=== PATIENT | female | born 1940 | race Caucasian/White ===

== ENCOUNTER 2017-11-26 17:14 | Emergency (ER) | payer MEDICARE, SELFPAY ==
[2017-11-26 17:21] VITALS: BP 104/54; PULSE 54; TEMP 35.9; O2SAT 100; BMI 18.0
[2017-11-26 18:00] VITALS: BP 145/76; PULSE 63; O2SAT 100
--- NOTE | 2017-11-26 18:09 | ED.FALL ---
HPI - Fall General Chief Complaint: Fall Stated Complaint: FALL RIGHT ARM INJURY Time Seen by Provider: 11/26/17 18:09 Source: patient Mode of arrival: EMS Limitations: no limitations History of Present Illness HPI Narrative: Patient is a 77-year-old female on Xarelto for atrial fibrillation here for evaluation of a mechanical fall. She states she was walking [place] and she tripped over some daniel. She states that she landed on her right shoulder. She states she did hit the right side of her head. No loss of consciousness. No neck pain. Has had pain in her right shoulder since the event. No other joint or muscle pain. Related Data Home Medications Medication Instructions Recorded Confirmed Fish Oil 1 cap PO DAILY 11/26/17 11/26/17 Vitamin B 1 tab PO DAILY 11/26/17 11/26/17 Vitamin D3 1 cap PO DAILY 11/26/17 11/26/17 levothyroxine 1 tab PO DAILY 11/26/17 11/26/17 metoprolol succinate 1 tab PO QPM 11/26/17 11/26/17 [id number] 1 tab PO DAILY 11/26/17 11/26/17 [Multivitamin 50 Plus] rivaroxaban [Xarelto] 1 tab PO DAILY 11/26/17 11/26/17 sertraline 1 tab PO QPM 11/26/17 11/26/17 Previous Rx's Medication Instructions Recorded hydrocodone-acetaminophen [[place]] 1 tab PO Q4-6H PRN #20 tab 11/26/17 ondansetron [Zofran ODT] 4 mg PO BID-TID PRN #14 tab 11/26/17 Allergies Allergy/AdvReac Type Severity Reaction Status Date / Time cortisone AdvReac Verified 11/26/17 17:26 Review of Systems Constitutional Denies fever(s), Denies frequent falls and Denies headache(s) Eyes Denies change in vision ENT Ears, Nose, Mouth, and Throat: Denies vertigo, Denies dizziness, Denies headache(s) and Denies neck pain Cardiovascular Denies chest pain, Denies syncope, Denies palpitations and Denies dyspnea Respiratory Denies cough and Denies dyspnea Gastrointestinal Gastrointestinal: Denies abdominal pain, Denies nausea and Denies vomiting Musculoskeletal Denies myalgias, Reports arthralgias (Right shoulder), Denies neck pain and Denies tingling Integumentary/Breasts Denies lesions and Denies rash Neurologic Denies confusion, Denies vertigo, Denies dizziness, Denies syncope, Denies frequent falls, Denies headache(s), Denies focal weakness, Denies tingling and Denies paresthesias Psychiatric Denies confusion Endocrine Denies palpitations Hematologic/Lymphatic Reports easy bleeding (On Xarelto) Exam Initial Vital Signs Initial Vital Signs: Vital Signs Temperature 96.7 F L 11/26/17 17:21 Pulse Rate 54 L 11/26/17 17:21 Blood Pressure 104/54 L 11/26/17 17:21 Pulse Oximetry 100 11/26/17 17:21 Const General: cooperative, healthy appearing, well developed, well groomed and No acute distress Orientation: alert, awake and oriented x3 HENKS Head: normal to inspection, normocephalic, atraumatic, No abrasion, No contusion and No hematoma Nose: external nose normal Face and sinus: normal facial exam Eyes Pupils: PERRL EOM: EOM intact bilaterally Resp Effort & Inspection: normal respiratory effort Auscultation: clear to auscultation bilaterally Cardio Rate: regular rate Heart Sounds: no murmurs Pulses: radial pulses present GI Inspection: non-distended Palpation: soft, No firm and No tender Back/Spine/Pelvis Cervical Spine: No cervical muscular tenderness, No cervical spinal tenderness, No step off deformity and cervical ROM abnormal Skin Lesions: no lesions Rashes: no rashes Neuro General: alert, awake and oriented x3 Cognition: normal cognition Speech: speech normal Sensory Exam: no sensory deficits noted Extrem Right upper extremity: shoulder/upper arm Details: tenderness, abnormal ROM and deformity Location: of the proximal humerus; no swelling, no abrasions and no lacerations Psych Appearance: grossly normal and well [place] [facility] Medical History Atrial fibrillation (Acute) Hypothyroid (Acute) Surgical History No pertinent past surgical history (Acute) Social History Smoking Status: Never smoker Procedures Orthopedic Splinting/Casting Injury #1: Side: right Upper Extremity Injury Location: shoulder Other Orthopedic Equipment: other (Coaptation splint right shoulder) Course Orders Ordered: ED Orders 11/26/17 18:17 XR shoulder RT 1V Stat XR shoulder RT min 2V Stat 11/26/17 18:21 Partial Thromboplastin Time Stat Prothrombin Time INR Stat 11/26/17 18:57 CT UE RT wo con Stat Discontinued Medications Hydrocodone Bitart/Acetaminophen (Vicodin Prepack) 1 bottle MISC SEEINSTR ONE Stop: 11/26/17 20:38 Last Admin: 11/26/17 21:16 Dose: 1 bottle Morphine Sulfate (Morphine) 4 mg SUBCUT NOW ONE Stop: 11/26/17 18:18 Last Admin: 11/26/17 18:27 Dose: 4 mg Morphine Sulfate (Morphine) 4 mg SUBCUT NOW ONE Stop: 11/26/17 19:59 Last Admin: 11/26/17 20:06 Dose: 4 mg Ondansetron HCl (Zofran Odt) 4 mg PO NOW ONE Stop: 11/26/17 20:29 Last Admin: 11/26/17 20:37 Dose: 4 mg Ondansetron HCl (Zofran Odt Prepack) 1 bottle MISC SEEINSTR ONE Stop: 11/26/17 20:38 Last Admin: 11/26/17 21:16 Dose: 1 bottle Vital Signs - 8 hr 11/26/17 19:00 11/26/17 20:00 11/26/17 21:00 Pulse Rate 99 H 80 104 H Blood Pressure Blood Pressure [Left Arm] 153/79 H 152/82 H 159/81 H Pulse Oximetry 98 95 11/26/17 21:27 Pulse Rate 78 Blood Pressure 159/81 H Blood Pressure [Left Arm] Pulse Oximetry MDM - Fall Lab Data Lab Results 11/26/17 Range/Units 18:21 PT 12.0 (10.1-12.7) SECONDS INR 1.1 (0.9-1.3) APTT 25 L (26.4-36.2) SECONDS Imaging Data Shoulder x-ray: Radiologist's impression: [address] [address] XRay Report Signed Patient: Trish Barnes [facility]#: [id number] : 1Acct:[id number] Age/Sex: 77 / FDate of Service: 11/26/17 Loc: ED Accession Number: [id number] Procedure: XR shoulder RT min 2V Ordering Provider: Kendell Bernard D.O. PROCEDURE: XR SHOULDER RT MIN 2V INDICATIONS: Fall with pain limited range of motion TECHNIQUE: 2 views of the shoulder were acquired. COMPARISON: None. FINDINGS: Bones: There is an acute comminuted fracture involving right humeral head and neck with a laterally displaced greater trochanteric fragment. There is superior-medial migration of humeral shaft in relation to humeral head. Moderate to severe shoulder joint osteoarthritis is seen. No dislocation. Soft tissues: No suspicious soft tissue calcifications. IMPRESSION: Acute displaced comminuted proximal head/neck fracture as above. Dictated by: Richard Spence M.D. on 11/26/2017 at 18:44 Approved by: Richard Spence M.D. on 11/26/2017 at 18:49 Humerus x-ray: Radiologist's impression: PROCEDURE: XR SHOULDER RT 1V INDICATIONS: Fall with pain limited range of motion TECHNIQUE: Single view of the shoulder were acquired. COMPARISON: [facility], XR SHOULDER RT MIN 2V, 11/26/2017, 18:00. FINDINGS: Bones: Again noted is comminuted fracture involving right humeral head and neck with medial and superior migration of humeral shaft in relation to humeral head. No dislocation. Laterally displaced greater tuberosity fragment is seen. Soft tissues: No suspicious soft tissue calcifications. IMPRESSION: Acute comminuted and displaced humeral head and neck fracture as above. Dictated by: Richard Spence M.D. on 11/26/2017 at 18:50 Approved by: Richard Spence M.D. on 11/26/2017 at 18:[address]: Radiologist's impression: [place] [address] CT Scan Report Signed Patient: Trish Barnes [facility]#: [id number] : 1940cct:[id number] Age/Sex: 77 / FDate of Service: 11/26/17 Loc: ED Accession Number: [id number] Procedure: CT UE RT wo con Ordering Provider: Kendell Bernard D.O. PROCEDURE: CT UE RT WO CON INDICATIONS: Right proximal humerus fracture TECHNIQUE: Noncontrast 1-1.5 mm thick sections acquired from the acromioclavicular joint to the inferior scapula, with coronal and sagittal reformatting. COMPARISON: [facility], CR, XR SHOULDER RT MIN 2V, 11/26/2017, 18:00. FINDINGS: Image quality: Excellent. Bones: Again noted is acute comminuted fracture involving right humeral head and neck with superior and medial migration of proximal humeral shaft in relation to the humeral head and approximately 1 cm overlapping at fracture site. Fracture lines are seen extending to involve both greater and lesser tuberosities with a medially displaced lesser tuberosity fragment and superior laterally displaced greater tuberosity fragment. Moderate acromioclavicular joint and glenohumeral joint osteoarthritis is seen. There is no dislocation. The visualized right upper ribs are clear. Soft tissues: There is suggestion of soft tissue swelling around the right proximal humeral shaft and small to moderate amount of joint effusion. Right apical scarring/atelectasis is seen. Emphysematous changes are noted in visualized right lung field. No pneumothorax. IMPRESSION: 1. Acute comminuted humeral head/neck fracture with superior and medial migration of humeral shaft in relation to humeral head. Displaced greater and lesser tuberosity fragments. No dislocation. Shoulder joint osteoarthritis. 2. Soft tissue swelling around proximal humeral shaft fracture site with suggestion of joint effusion. Right apical scarring/atelectasis. No gross pneumothorax. Dictated by: Richard Spence M.D. on 11/26/2017 at 19:44 Approved by: Richard Spence M.D. on 11/26/2017 at 19:49 MDM Narrative Medical decision making narrative: Secondary to patient's history and physical exam and where she states that she hit her shoulder and then the right side of her head and no loss consciousness and no neurologic exam I feel that I can hold on a head CT for now. Does have a right proximal humerus fracture. CT scan was ordered per recommendation from Orthopedics. I discussed the case with Dr. Jones with Orthopedics. Patient was neurovascularly intact in the right upper extremity. Patient was placed in a splint. Was sent home with pain medication. She was given follow-up instructions with the Orthopedic group. She was also given return precautions. Patient expressed understanding. Her was at the bedside for all these discussions. They both expressed agreement plan Discharge Plan Departure Patient Disposition: Home Clinical Impression: Fracture, humerus, neck Discharge Date/Time: 11/26/17 21:28 Interventions: ED Discharge Assessment Last Done: 11/26/17 21:27 Instructions: How to Use a Sling, DI for Shoulder Fracture, How to Take Care of Your Splint Activity Restrictions/Additional Instructions: On Wednesday morning call the [facility] Orthopedic group at [phone]. They had recommended that you stop taking your Xarelto. Take the medications as directed. Return to the emergency department for any new or worsening symptoms Prescriptions: New hydrocodone-acetaminophen [[place]] 5-325 mg tablet 1 tab PO Q4-6H PRN (Reason: pain) Qty: 20 RF: 0 ondansetron [Zofran ODT] 4 mg tablet,disintegrating 4 mg PO BID-TID PRN (Reason: nausea and vomiting) Qty: 14 RF: 0 No Action metoprolol succinate 50 mg tablet extended release 24 hr 1 tab PO QPM RF: 0 levothyroxine 50 mcg tablet 1 tab PO DAILY RF: 0 sertraline 50 mg tablet 1 tab PO QPM RF: 0 rivaroxaban [Xarelto] 20 mg tablet 1 tab PO DAILY RF: 0 [id number] [Multivitamin 50 Plus] Tablet 1 tab PO DAILY RF: 0 Fish Oil 1 cap PO DAILY RF: 0 Vitamin B 1 tab PO DAILY RF: 0 Vitamin D3 1 cap PO DAILY RF: 0
--- NOTE | 2017-11-26 18:17 | DI.RAD.S_ITS ---
PROCEDURE: XR SHOULDER RT MIN 2V INDICATIONS: Fall with pain limited range of motion TECHNIQUE: 2 views of the shoulder were acquired. COMPARISON: None. FINDINGS: Bones: There is an acute comminuted fracture involving right humeral head and neck with a laterally displaced greater trochanteric fragment. There is superior-medial migration of humeral shaft in relation to humeral head. Moderate to severe shoulder joint osteoarthritis is seen. No dislocation. Soft tissues: No suspicious soft tissue calcifications. IMPRESSION: Acute displaced comminuted proximal head/neck fracture as above. Dictated by: Richard Spence M.D. on 11/26/2017 at 18:44 Approved by: Richard Spence M.D. on 11/26/2017 at 18:49
--- NOTE | 2017-11-26 18:17 | DI.RAD.S_ITS ---
PROCEDURE: XR SHOULDER RT 1V INDICATIONS: Fall with pain limited range of motion TECHNIQUE: Single view of the shoulder were acquired. COMPARISON: [facility], CR, XR SHOULDER RT MIN 2V, 11/26/2017, 18:00. FINDINGS: Bones: Again noted is comminuted fracture involving right humeral head and neck with medial and superior migration of humeral shaft in relation to humeral head. No dislocation. Laterally displaced greater tuberosity fragment is seen. Soft tissues: No suspicious soft tissue calcifications. IMPRESSION: Acute comminuted and displaced humeral head and neck fracture as above. Dictated by: Richard Spence M.D. on 11/26/2017 at 18:50 Approved by: Richard Spence M.D. on 11/26/2017 at 18:56
[2017-11-26] MEDS: MORPHINE 4 MG/ML INJ SUBCUT ×2 (18:27→20:06)
[2017-11-26 18:35] LABS: INR 1.1 (0.9-1.3)
[2017-11-26 18:38] LABS: PTT Partial Thromboplastin Tim 25 SECONDS (26.4-36.2)
--- NOTE | 2017-11-26 18:57 | DI.CT.S_ITS ---
PROCEDURE: CT UE RT WO CON INDICATIONS: Right proximal humerus fracture TECHNIQUE: Noncontrast 1-1.5 mm thick sections acquired from the acromioclavicular joint to the inferior scapula, with coronal and sagittal reformatting. COMPARISON: [facility], CR, XR SHOULDER RT MIN 2V, 11/26/2017, 18:00. FINDINGS: Image quality: Excellent. Bones: Again noted is acute comminuted fracture involving right humeral head and neck with superior and medial migration of proximal humeral shaft in relation to the humeral head and approximately 1 cm overlapping at fracture site. Fracture lines are seen extending to involve both greater and lesser tuberosities with a medially displaced lesser tuberosity fragment and superior laterally displaced greater tuberosity fragment. Moderate acromioclavicular joint and glenohumeral joint osteoarthritis is seen. There is no dislocation. The visualized right upper ribs are clear. Soft tissues: There is suggestion of soft tissue swelling around the right proximal humeral shaft and small to moderate amount of joint effusion. Right apical scarring/atelectasis is seen. Emphysematous changes are noted in visualized right lung field. No pneumothorax. IMPRESSION: 1. Acute comminuted humeral head/neck fracture with superior and medial migration of humeral shaft in relation to humeral head. Displaced greater and lesser tuberosity fragments. No dislocation. Shoulder joint osteoarthritis. 2. Soft tissue swelling around proximal humeral shaft fracture site with suggestion of joint effusion. Right apical scarring/atelectasis. No gross pneumothorax. Dictated by: Richard Spence M.D. on 11/26/2017 at 19:44 Approved by: Richard Spence M.D. on 11/26/2017 at 19:49
[2017-11-26 19:00] VITALS: BP 153/79; PULSE 99; O2SAT 98
[2017-11-26 20:00] VITALS: BP 152/82; PULSE 80; O2SAT 95
[2017-11-26] MEDS: ONDANSETRON 4 MG ODT PO (20:37)
[2017-11-26 21:00] VITALS: BP 159/81; PULSE 104
[2017-11-26] MEDS: HYDROCODONE/ACET 5/325 PREPACK 1 BOTTLE MISC (21:16)
[2017-11-26] MEDS: ONDANSETRON 4 MG ODT PREPACK 1 BOTTLE MISC (21:16)
[2017-11-26 21:27] VITALS: BP 159/81; PULSE 78
== END 2017-11-26 21:28 | disposition home or self-care (01) ==
PROVIDERS: Emergency Provider Emergency Medicine; Family Provider Family Medicine; PCP Family Medicine
DX: S42.251A Displaced fracture of greater tuberosity of right humerus, initial encounter for closed fracture (principal); W01.0XXA Fall on same level from slipping, tripping and stumbling without subsequent striking against object, initial encounter
CPT/HCPCS: 36415; 73020; 73030; 73200; 85610; 85730; 99283; 99284; J2270

== ENCOUNTER → 2017-12-01 11:38 | Outpatient (CLI) | payer MEDICARE, OTHER, SELFPAY ==
[2017-12-01 12:00] LABS: Bacteria Urine None Seen
[2017-12-01 12:31] LABS: Add Manual Diff / Slide Review NO; Basophils Percent Auto 0.7 % (0-2); Hematocrit 36.9 % (36-46); Hemoglobin 12.1 g/dL (12.0-16.0); Lymphocytes Percent Auto 13.3 % (25-40); Mean Corpuscular HGB Conc 32.8 % (30-36); Mean Corpuscular Hemoglobin 30.9 PG (26-34); Mean Corpuscular Volume 94.2 fL (80-100); Neutrophils Absolute Auto 5300 /uL (3000-5900); Platelet Count 272 X10^3/uL (150-400); Red Blood Cell Count 3.92 X10^6/uL (4.0-5.2); Red Cell Distribution Width 13.5 % (11.6-14.8); White Blood Cell Count 7.1 X10^3/uL (4.5-11.0)
[2017-12-01 12:41] LABS: Hemoglobin A1C% w Est Avg Glu 5.8 % (4.0-6.0)
[2017-12-01 12:44] LABS: Appearance Urine UA CLOUDY; Bilirubin Urine UA 1+ (NEGATIVE); Color Urine UA YELLOW; Glucose Urine UA NEGATIVE (Normal); Ketones Urine UA 3+ (NEGATIVE); Leukocyte Esterase Urine UA NEGATIVE (NEGATIVE); Nitrite Urine UA Negative (Negative); Occult Blood Urine UA 3+ (Negative); Protein Urine UA 2+ (Negative); Specific Gravity Urine UA >=1.030 (1.000-1.035); Urobilinogen Urine UA 0.2 E.U./dL (0.2); pH Urine UA 5.5 (4.5-8.0)
[2017-12-01 12:50] LABS: Blood Urea Nitrogen 33 mg/dL (7-17); Calcium 9.2 mg/dL (8.4-10.2); Carbon Dioxide 28 mmol/L (22-32); Chloride 104 mmol/L (98-107); Estimated Glomerular Filt Rate > 60.0 mL/min (>60); Glucose 96 mg/dL (80-110); HEMOLYSIS < 15 (0-50); Potassium 4.2 mmol/L (3.4-5.1); Sodium 143 mmol/L (137-145)
[2017-12-01 13:13] LABS: Culture Indicated Urine Cult Not Indicated; Mucus Urine 2+ (Negative); RBC Urine >100/HPF (0-5/HPF); Squamous Epithelial Cell Urine 1-5 /HPF; WBC Urine 1-5/HPF (0-5/HPF)
[2017-12-01 18:19] LABS: Ictotest Urine Negative (Negative)
== END ==
PROVIDERS: Family Provider Family Medicine; PCP Family Medicine; Visit Provider Orthopaedic Surgery
DX: Z01.818 Encounter for other preprocedural examination (principal); Z01.812 Encounter for preprocedural laboratory examination; N39.9 Disorder of urinary system, unspecified; R73.09 Other abnormal glucose
CPT/HCPCS: 36415; 80048; 81001; 83036; 85025; 93005

== ENCOUNTER 2017-12-03 08:32 | Inpatient (IN) | payer MEDICARE, SELFPAY ==
[2017-12-02 13:28] VITALS: BMI 18.3
[2017-12-03] VITALS (13 sets, daily range): BP systolic 97–153; BP diastolic 49–97; PULSE 64–104; RESP 10–22; TEMP 36.3–37.4; O2SAT 90–100; BMI 18.3
--- NOTE | 2017-12-03 06:00 | DI.RAD.S_ITS ---
PROCEDURE: XR SHOULDER RT 1V INDICATIONS: prosthesis placement TECHNIQUE: Single views of the shoulder were acquired. COMPARISON: [facility], CR, XR SHOULDER RT 1V, 11/26/2017, 18:00. FINDINGS: Bones: There is expected postoperative alignment of reverse polarity shoulder arthroplasty based on this single image. No fractures or dislocations. No suspicious bony lesions. Visualized ribs appear intact. Soft tissues: No suspicious soft tissue calcifications. Overlying postoperative changes IMPRESSION: Expected postoperative appearance based on this single image Dictated by: Gen Charlton M.D. on 12/03/2017 at 16:25 Approved by: Gen Charlton M.D. on 12/03/2017 at 16:26
[2017-12-03] MEDS: ACETAMINOPHEN 325 MG TABLET 975 MG PO ×3 (09:42→21:08)
[2017-12-03] MEDS: CELECOXIB 200 MG CAPSULE PO (09:42)
[2017-12-03] MEDS: PREGABALIN 75 MG CAPSULE PO (09:43)
--- NOTE | 2017-12-03 10:09 | PM.PREOP ---
Pre-operative Note Interval Note Pre-op Check: Yes History & Physical Reviewed by Physician and Yes Exam Performed Changes: No
[2017-12-03] MEDS: fentaNYL 100 MCG/2 ML INJ 50 MCG IV (11:14)
[2017-12-03] MEDS: MIDAZOLAM 2 MG/2 ML VIAL 1 MG IV (11:14)
[2017-12-03] MEDS: CEFAZOLIN 2 GM/100 ML FROZ.PIGGY IV (11:30)
--- NOTE | 2017-12-03 12:07 | PC.NURSE ---
Day shift: Pt not on AC unit at this time. Will chart, assess and monitor when they arrive.
--- NOTE | 2017-12-03 12:15 | SUR.OPER ---
Beach chair with Schlein shoulder positioner. Lower body on padded OR bed. Head in foam padded head cradle, secured with straps. Non-operative arm secured <90 degrees abduction. Pillow under knees. Safety belt at thigh. Cloth tape over blanket over lower legs.
--- NOTE | 2017-12-03 12:15 | PM.PROC.1 ---
Procedures Date/Time Date of procedure: 12/03/17 Time of procedure: 11:16 Nerve Block Time out performed: Yes Local anesthetic used: other (12mL 0.5ropivacaine, 3mL 2 %lidocaine) Location of anesthetic used: interscalene Amount of anesthesia used (mL): 15 Nerve blocks: brachial plexus (interscalene) Procedure successful: Yes Patient tolerated procedure: well Complications: none Additional comments: Brachial plexus nerve block for post operative pain management. Risks and benefits discussed, including bleeding, infection, intravascular injection, nerve damage, block failure. Standard ASA monitors, NC O2. Pt supine. Chloroprep site preparation, sterile technique. Brachial plexus identified with US guidance, traced from supraclavicular to interscalene. 1mL 2% lidocaine skin wheal. 22g x 50mm Pajunk advanced with in-plane US guidance to brachial plexus. Negative aspiration. LA injected with intermittent negative aspiration. Good LA spread noted on US. No pain, no paraesthesia. Pt tolerated procedure well. Vital signs stable.
--- NOTE | 2017-12-03 12:18 | P.PCN_ITS ---
Procedures Date/Time Date of procedure: 12/03/17 Time of procedure: 11:16 Nerve Block Time out performed: Yes Local anesthetic used: other (12mL 0.5 %ropivacaine, 3mL 2* %lidocaine) Location of anesthetic used: interscalene Amount of anesthesia used (mL): 15 Nerve blocks: brachial plexus (interscalene) Procedure successful: Yes Patient tolerated procedure: well Complications: none Additional comments: Brachial plexus nerve block for post operative pain management. Risks and benefits discussed, including bleeding, infection, intravascular injection, nerve damage, block failure. Standard ASA monitors, NC O2. Pt supine. Chloroprep site preparation, sterile technique. Brachial plexus identified with US guidance, traced from supraclavicular to interscalene. 1mL 2% lidocaine skin wheal. 22g x 50mm Pajunk advanced with in- plane US guidance to brachial plexus. Negative aspiration. LA injected with intermittent negative aspiration. Good LA spread noted on US. No pain, no paraesthesia. Pt tolerated procedure well. Vital signs stable.
[2017-12-03] MEDS: LACTATED RINGERS 1,000 ML 42 ML IV ×2 (13:13→14:49)
[2017-12-03] MEDS: BUPIVACAINE 0.5% W/ EPI (PF) VIAL 30 ML INJ (13:36)
--- NOTE | 2017-12-03 13:53 | PM.OP.1 ---
Operative Date/Time/Diagnoses Date of procedure: 12/03/17 Time of procedure: 14:00 Pre-op diagnosis: Closed displaced 4 part right proximal humerus fracture. Post-op diagnosis: same Procedure & Clinicians Procedure: 1. Right reverse total shoulder arthroplasty 2. Open reduction and internal fixation of fractures of the greater and lesser tuberosities Same procedure as scheduled: Yes Indications: The patient is a 77-year-old woman who fell sustaining the above-noted fracture. She was evaluated by my partner Dr. Sarah Jones and was prepared for a reverse total shoulder arthroplasty. The risks benefits and alternatives of the surgery were discussed by me with the patient preoperatively. Risks discussed included but were not limited to: Failure to improve pain or function, infection, nerve damage, deep venous thrombosis, pulmonary embolism, stroke, myocardial infarction, permanent paralysis and . Surgeon: Clifford Presley Meter Reader Chief: Joslyn Gonzalez Click Yes if Unassisted: Yes Anesthesia Type: General, Peripheral nerve block and Local Operative Notes Findings: Displaced 4 part proximal humerus fracture. Closure Type: primary Specimen(s): none sent Implants & Drains: Implants used in this procedure were manufactured by the [employer] and included an Altivate RSP total shoulder system with a 32 mm -4 glenoid head, and a standard RSP glenoid base plate with 30 mm central screw, 3 locking bolts 2 of which measured 26 mm 1 of which measured 14 mm in length. There was a 8 mm x 108 mm porous-coated humeral stem with a 32 mm standard humeral socket insert. In addition a ?clear cut? cement restrictor was placed. Applied: drain(s) and implant(s) Estimated Blood Loss (mL): 100 Blood products transfused: none Procedure in detail: The patient was seen in the preoperative area where they identified the right shoulder as the operative site and this was marked with my initials. He received preoperative antibiotics and underwent the induction of an interscalene block. They were taken to the operating room and placed on the operating room table in a supine position with the underwent the induction of a general anesthetic. There were then repositioned in the ?beach chair? position using a dedicated positioner. All pressure points were well padded. The knees were slightly bent to prevent tension on the sciatic nerves.The right arm was prepared from the fingertips to the base of the neck with ChloraPrep in the usual fashion and draped through sterile drapes. An approximately 15 cm incision was created starting at the clavicle just above the coracoid and going to the deltoid insertion. The deltopectoral interval was used to access the shoulder taking the vein to the medial side. The vein was protected throughout the case. The upper 1 cm of the pectoralis major was released. The biceps tendon was identified and used as a guide to enter the joint. The biceps itself was tenodesed over the pectoralis tendon using a suture. As is typical, the fracture did not extend through the base of the bicipital groove but rather through the anterior portion of the greater tuberosity. The lesser tuberosity and attached subscapularis was tagged for later repair. The humeral head was removed from the joint. 3 sutures were placed around the greater tuberosity spaced equally inferiorly center and superiorly. Retractors were placed access the glenoid. A 360 degree release was performed of the subscapularis with care being taken to protect the axillary nerve. The soft tissues were removed circumferentially around the glenoid. The guide was used to drill the guide hole in the center of the inferior glenoid. The tap was placed and used as a guide for the reamer. The tap was then removed and the glenoid base plate inserted. The peripheral locking screws were then placed through the appropriate guide. The anterior locking bolt was not placed due to the small size of the patient's glenoid and the small depth in this hole. A trial glenoid head was applied. We then turned our attention to the humerus. Cylindrical reamers were used to size the canal. The appropriate humeral trial was constructed and held in the canal with a lap sponge. Trial reductions were performed and the size of the glenoid head and the cup were optimized. Stability was checked in maximal internal and external rotation and range of motion was checked to allow access to the top of the head, internal rotation to an excess of 50? in the ?scarecrow position? and the ability to reach the groin. The appropriate glenoid head and humeral stem prosthetics were then opened. The glenoid head was impacted into position and checked for rotational and axial stability before placing the set screw. The humeral canal was plugged, irrigated and dried prior to cement injection. The stem was then placed and held in position at the appropriate length of insertion. This had been determined by measuring the length of the greater tuberosity fragment and leaving this much stem exposed laterally. Drill holes for repair of the lesser and greater tuberosity were performed and sutures placed prior to cement. A suture was placed through the anterior of the 2 holes in the rim of the humeral prosthetic for rotator cuff repair. The humeral cup was placed. The joint was relocated and irrigated. The tuberosities were then reduced around the proximal stem. Bone graft was placed and the tuberosities tightened into position. Open reduction internal fixation of the tuberosities was then performed using the sutures that had previously been placed. Initially the rotator cuff suture on the rim of the prosthetic was placed and tied to help close the rotator interval. An additional [id number] suture was used in the rotator interval. The 3 sutures around the greater tuberosity had been placed through the hole on the medial metaphysis of the stem. These were then passed through the lesser tuberosity as well. These were tied starting superiorly and going to the inferior sutures to progressively cerclage the tuberosities together. All of the sutures had been #2 Ethibond. Finally, the 2 #2 FiberWire sutures that had been placed in the holes on the humeral shaft were used to perform tension band closure of the subscapularis and the supraspinatus over the tuberosities.. A deep drain was placed. The deltopectoral interval was reapproximated with 0 Vicryl. Subcutaneous layer was closed with interrupted 3-0 Vicryl and skin with a running 3 0 V lock suture. Subcutaneous tissues were then infiltrated with 0.5% Marcaine for postoperative pain control. An Aquacel Ag dressing was applied and the patient's arm was placed in a sling. The patient was then transferred to the recovery room in good condition having tolerated the procedure well. Complications: none Condition: stable Disposition: PACU Plan for aftercare: The patient will be allowed to do pendulum exercises for 6 weeks. She will then be progressively advanced on range of motion exercise and strengthening.
[2017-12-03] MEDS: LACTATED RINGERS 1,000 ML 125 ML IV ×2 (15:39→23:45)
--- NOTE | 2017-12-03 15:53 | PC.NURSE ---
1500: Pt to acute care from PACU. Drowsy but awakens to voice. Denies pain. Oriented. History of recent falls. IV fluids started per order. Spouse present at bedside for admission. Meds given to him to take home. Oriented to room and call light.
[2017-12-03] MEDS: ONDANSETRON 4 MG ODT PO (17:34)
[2017-12-03] MEDS: DOCUSATE 100 MG CAPSULE PO (21:07)
[2017-12-03] MEDS: CEFAZOLIN 1 GM/50 ML FROZ.PIGGY IV (21:07)
[2017-12-03] MEDS: SERTRALINE 50 MG TABLET PO (21:08)
[2017-12-03] MEDS: OXYCODONE IR 5 MG TABLET PO (23:46)
[2017-12-04 00:18] VITALS: BP 109/53; PULSE 93; RESP 16; TEMP 36.2; O2SAT 98
[2017-12-04] MEDS: OXYCODONE IR 5 MG TABLET PO ×4 (02:41→13:07)
[2017-12-04 03:33] VITALS: BP 122/68; PULSE 90; RESP 16; TEMP 36.7; O2SAT 99
[2017-12-04] MEDS: CEFAZOLIN 1 GM/50 ML FROZ.PIGGY IV (03:34)
[2017-12-04] MEDS: HYDROMORPHONE 1 MG INJ 0.5 MG IV (03:35)
[2017-12-04] MEDS: LEVOTHYROXINE 50 MCG TABLET PO (05:41)
[2017-12-04 05:53] LABS: Hematocrit 33.4 % (36-46); Hemoglobin 11.1 g/dL (12.0-16.0); Mean Corpuscular HGB Conc 33.2 % (30-36); Mean Corpuscular Volume 93.2 fL (80-100); Platelet Count 230 X10^3/uL (150-400); Red Blood Cell Count 3.59 X10^6/uL (4.0-5.2); Red Cell Distribution Width 13.2 % (11.6-14.8); White Blood Cell Count 9.8 X10^3/uL (4.5-11.0)
[2017-12-04 08:00] VITALS: BP 128/62; PULSE 97; RESP 16; TEMP 36.5; O2SAT 97
[2017-12-04] MEDS: LACTATED RINGERS 1,000 ML 125 ML IV (08:18)
[2017-12-04] MEDS: METOPROLOL ER 50 MG TABLET PO (08:18)
--- NOTE | 2017-12-04 08:58 | PM.DS.1 ---
History of Present Illness Date Patient Seen: 12/04/17 Time Patient Seen: 08:58 Chief complaint: [id number] RIGHT SHOULDER ARTHROPLASTY Narrative: The history and physical on this patient has been completed in a previous note. Please refer to that note for this information. Discharge Providers Date of admission: 12/03/17 08:32 Primary care physician: Kendell Taylor MD Consults: 12/03/17 15:14 Consult to Discharge Planning Routine Comment: Consult to Physical Therapy Evaluate & Treat Comment: May do pendulum exercises. No active motion R ascencion Physician Instructions: Evaluate and Treat 12/03/17 15:20 Consult to Dietitian, Adult Routine Comment: Reason For Exam: decrease in appetite/weight loss Consult to Pastoral Services Routine Comment: requested by patient/family - mosque Consult to Commutator Repairer Routine Comment: Discharge provider: Clifford Presley MD Discharge Date: 12/04/17 Summary Discharge Diagnosis: 1. Displaced 4 part proximal right humerus fracture 2. Acute blood loss anemia Hospital Course: The patient was admitted to the hospital and taken directly to the operating room on December 03, 2017 where she underwent a reverse total shoulder arthroplasty with open reduction internal fixation of tuberosity fractures. She tolerated this procedure well and was comfortable postoperatively on postoperative day 1 she was felt to be stable for discharge home. She appears to have an acute post hemorrhagic anemia which is within the range that is acceptable for this procedure. Status at Discharge Cognitive/behavioral status at discharge: Baseline Functional status at discharge: independent ambulation Overall status at discharge: patient is progressing back to baseline Time Spent with Patient Less than 30 minutes Exam Vital Signs (past 8 hours): - 12/04/17 03:33 12/04/17 08:00 Temperature 98.0 F 97.7 F Pulse Rate 90 97 H Respiratory Rate 16 16 Blood Pressure 122/68 128/62 Pulse Oximetry 99 97 Oxygen Delivery Method Room Air Oxygen Flow Rate 2 Narrative Exam Narrative: Right upper extremity wound is dressed with no significant drainage on the bandage. Light touch is intact in the radial, ulnar, median, muscular cutaneous and axillary nerve distribution. She can extend her thumb, abduct her thumb, abduct her fingers, flex her biceps and fire her deltoid. Objective Labs Result Diagrams: 12/04/17 05:22 Labs: Laboratory Results - last 24 hr 12/04/17 05:22 WBC 9.8 RBC 3.59 L Hgb 11.1 L Hct 33.4 L MCV 93.2 MCH 31.0 MCHC 33.2 RDW 13.2 Plt Count 230 Discharge Plan Discharge Plan Patient Disposition: Home Discharge Med Rec/Prescriptions Prescriptions: New oxycodone 5 mg Tablet 5 mg PO Q3HR PRN (Reason: Pain, Moderate (4-6)) Qty: 40 RF: 0 Continue metoprolol succinate 50 mg tablet extended release 24 hr 1 tab PO QAM RF: 0 levothyroxine 50 mcg tablet 1 tab PO DAILY RF: 0 sertraline 50 mg tablet 1 tab PO QPM RF: 0 rivaroxaban 20 mg tablet 1 tab PO DAILY RF: 0 cabdxrjyynpk-yczvluif-qjjlos [Multivitamin 50 Plus] Tablet 1 tab PO DAILY RF: 0 Fish Oil 1 cap PO DAILY RF: 0 Vitamin B 1 tab PO DAILY RF: 0 Vitamin D3 1 cap PO DAILY RF: 0 ondansetron [Zofran ODT] 4 mg tablet,disintegrating 4 mg PO BID-TID PRN (Reason: nausea and vomiting) Qty: 14 RF: 0 Discontinued hydrocodone-acetaminophen [[place]] 5-325 mg tablet 1 tab PO Q4-6H PRN (Reason: pain) Qty: 20 RF: 0 Follow up/Referrals: Clifford Presley MD [Physician] - 2 Weeks Provider Discharge Instructions Diet: Diet as Tolerated and Regular Activity: No lifting with the right arm. Cold/Heat Therapy: Apply ice to right shoulder for 15 min every hour as needed for pain relief. Other treatments: Keep sling on except for pendulum exercises. You can do the pendulum exercises several times daily. Skin/Wound/Dressing Care Report to your healthcare provider any signs of infection, such as:: chills, fever, night sweats, increased pain and unusual drainage Dressing: You may shower with the current dressing in place. Please leave the dressing in place until follow-up at the office. If the central slip of the dressing becomes saturated with either water or blood please contact the office. Discharge Data Primary Care Provider: Kendell Taylor Attending Provider: Clifford Presley Admit Date/Time: 12/03/17 08:32 Quality VTE Deep Vein Thrombosis/Pulmonary Embolism Present on Admission: No
--- NOTE | 2017-12-04 09:03 | P.DS_ITS ---
History of Present Illness Date Patient Seen: 12/04/17 Time Patient Seen: 08:58 Chief complaint: [id number] RIGHT SHOULDER ARTHROPLASTY Narrative: The history and physical on this patient has been completed in a previous note. Please refer to that note for this information. Discharge Providers Date of admission: 12/03/17 08:32 Primary care physician: Kendell Taylor MD Consults: 12/03/17 15:14 Consult to Discharge Planning Routine Comment: Consult to Physical Therapy Evaluate & Treat Comment: May do pendulum exercises. No active motion R ascencion Physician Instructions: Evaluate and Treat 12/03/17 15:20 Consult to Dietitian, Adult Routine Comment: Reason For Exam: decrease in appetite/weight loss Consult to Pastoral Services Routine Comment: requested by patient/family - church Consult to Devil Dog Routine Comment: Discharge provider: Clifford Presley MD Discharge Date: 12/04/17 Summary Discharge Diagnosis: 1. Displaced 4 part proximal right humerus fracture 2. Acute blood loss anemia Hospital Course: The patient was admitted to the hospital and taken directly to the operating room on December 03, 2017 where she underwent a reverse total shoulder arthroplasty with open reduction internal fixation of tuberosity fractures. She tolerated this procedure well and was comfortable postoperatively on postoperative day 1 she was felt to be stable for discharge home. She appears to have an acute post hemorrhagic anemia which is within the range that is acceptable for this procedure. Status at Discharge Cognitive/behavioral status at discharge: Baseline Functional status at discharge: independent ambulation Overall status at discharge: patient is progressing back to baseline Time Spent with Patient Less than 30 minutes Exam Vital Signs (past 8 hours): - 12/04/17 03:33 12/04/17 08:00 Temperature 98.0 F 97.7 F Pulse Rate 90 97 H Respiratory Rate 16 16 Blood Pressure 122/68 128/62 Pulse Oximetry 99 97 Oxygen Delivery Method Room Air Oxygen Flow Rate 2 Narrative Exam Narrative: Right upper extremity wound is dressed with no significant drainage on the bandage. Light touch is intact in the radial, ulnar, median, muscular cutaneous and axillary nerve distribution. She can extend her thumb, abduct her thumb, abduct her fingers, flex her biceps and fire her deltoid. Objective Labs Result Diagrams: 12/04/17 05:22 Labs: Laboratory Results - last 24 hr 12/04/17 05:22 WBC 9.8 RBC 3.59 L Hgb 11.1 L Hct 33.4 L MCV 93.2 MCH 31.0 MCHC 33.2 RDW 13.2 Plt Count 230 Discharge Plan Discharge Plan Patient Disposition: Home Discharge Med Rec/Prescriptions Prescriptions: New oxycodone 5 mg Tablet 5 mg PO Q3HR PRN (Reason: Pain, Moderate (4-6)) Qty: 40 RF: 0 Continue metoprolol succinate 50 mg tablet extended release 24 hr 1 tab PO QAM RF: 0 levothyroxine 50 mcg tablet 1 tab PO DAILY RF: 0 sertraline 50 mg tablet 1 tab PO QPM RF: 0 rivaroxaban 20 mg tablet 1 tab PO DAILY RF: 0 hxyfuptikvhu-tuaylkeh-awrwtn [Multivitamin 50 Plus] Tablet 1 tab PO DAILY RF: 0 Fish Oil 1 cap PO DAILY RF: 0 Vitamin B 1 tab PO DAILY RF: 0 Vitamin D3 1 cap PO DAILY RF: 0 ondansetron [Zofran ODT] 4 mg tablet,disintegrating 4 mg PO BID-TID PRN (Reason: nausea and vomiting) Qty: 14 RF: 0 Discontinued hydrocodone-acetaminophen [[place]] 5-325 mg tablet 1 tab PO Q4-6H PRN (Reason: pain) Qty: 20 RF: 0 Follow up/Referrals: Clifford Presley MD [Physician] - 2 Weeks Provider Discharge Instructions Diet: Diet as Tolerated and Regular Activity: No lifting with the right arm. Cold/Heat Therapy: Apply ice to right shoulder for 15 min every hour as needed for pain relief. Other treatments: Keep sling on except for pendulum exercises. You can do the pendulum exercises several times daily. Skin/Wound/Dressing Care Report to your healthcare provider any signs of infection, such as:: chills, fever, night sweats, increased pain and unusual drainage Dressing: You may shower with the current dressing in place. Please leave the dressing in place until follow-up at the office. If the central slip of the dressing becomes saturated with either water or blood please contact the office. Discharge Data Primary Care Provider: Kendell Taylor Attending Provider: Clifford Presley Admit Date/Time: 12/03/17 08:32 Quality VTE Deep Vein Thrombosis/Pulmonary Embolism Present on Admission: No
[2017-12-04] MEDS: ACETAMINOPHEN 325 MG TABLET 975 MG PO ×2 (09:40→14:20)
[2017-12-04] MEDS: POLYETHYLENE GLYCOL 3350 17 GM POWD.PACK PO (09:41)
[2017-12-04] MEDS: DOCUSATE 100 MG CAPSULE PO (10:13)
[2017-12-04 11:35] VITALS: BP 113/76; PULSE 101; RESP 16; TEMP 36.4; O2SAT 97
--- NOTE | 2017-12-04 11:49 | CM.DANOTE ---
DCP: Case received, EMR reviewed and met with patient. Introduced self and role. DCP template completed with information currently available. Patient is a 77 year old female who admitted yesterday morning to the care of the hospitalist team. PCP: Dr. Taylor. Payer: confirmed: Medicare/[employer] [employer]. Patient came to hospital for right shoulder arthroplasty after sustaining a ground level fall. Patient alert and oriented, lives with spouse. [place], and are intending to return. Patient is to be working with physical therapy and occupational therapy before going home. P: DCP to continue to assess. Plan is for patient to return home when stable. Mariya Fairchild RN/Subway Train Operator
--- NOTE | 2017-12-04 12:30 | PC.NURSE ---
Addendum entered by January Arenas R.N. 12/04/17 14:50: dc - reviewed dc instructions provided to pt and spouse, belongings packed, social science analyst assisted w/dressing pt for tsf home, tsf to and escorted by social science analyst to spouse's car, med was filled and picked up by spouse. Original Note: Addendum entered by January Arenas R.N. 12/04/17 14:01: GI/MS - pt and spouse more comfortable following afternoon phys therapy, spouse was able to demonstrated putting on/taking off sling, given oxycodone 5mg after lunch, [place] [facility] [place] bm. Original Note: Addendum entered by January Arenas R.N. 12/04/17 12:35: DC/PAIN - script for oxycodone was given to spouse who dropped off at [facility] this am, did discuss the oxycodone and constipation as pt had been taking these prior to surgery after fall, list of laxative choices to spouse, they have senna at home and spouse will citrus picker addl at [facility]. Original Note: AM NOTE - awake, states pain r shoulder 7 on scale 0/10, wearing sling, + sensation fingers r hand, wiggles easily, aquacell dsg cdi, in this am, spoke to pt and spouse, some apprehension part spouse caring for pt at home, per , pt will dc and informed spouse he can be called if any complications, spoke and pt re no BM prior to surg for 7 days, continues constipated, does have bt present, discussed laxatives to have at home and given prune juice x2, miralax and talia, is passing flatus, ra 97%, hr irreg, given oxycodone 5mg this am, OT in for instructions adl's, limited to pendulum motions, Mariya JANG contacted to provide pt and spouse with info for home assistance if needed.
--- NOTE | 2017-12-04 13:00 | PT.IIE ---
Current Diagnoses Other displaced fracture of upper end of right humerus, initial encounter for closed fracture (12/03/17) Surgery Performed Operation Date: 12/03/17 10:30 Actual Procedures p Right Reverse Total Shoulder Arthroplasty and Fixation of Tuberosity Fractures(Right) - Clifford Presley MD Surgical History (Last Updated 12/02/17 @ 14:53 by Mansi Rawls, RN) History of lung surgery (Acute) Hx of thyroidectomy (Acute) Status post bilateral cataract extraction (Acute) Medical History (Last Updated 12/02/17 @ 14:53 by Mansi Rawls RN) Atrial fibrillation (Acute) Depression (Acute) Fracture of proximal end of right humerus (Acute) Hemorrhoids (Acute) History of tuberculosis (Acute) History of varicose veins (Acute) Hypothyroid (Acute) Kidney stones (Acute) Osteoporosis (Acute) Physical Therapy Inpatient Evaluation/Re-Eval M1 PT/OT-IP Prior Functional Status Start: 12/04/17 13:16 Freq: Status: Active Protocol: Document 12/04/17 13:00 [facility] (Rec: 12/04/17 13:30 [facility] [email or web address]) Medical Review Prior Functional Status Mobility and Gait indep. gait without device Activities of Daily Living and IADL's indep. ADLs Social History Household Members spouse Living Arrangements House Number of Floors (Floors) One Floor Number of Stairs To Enter/Railing? 2 SE without rail Additional Social History Comment pt sleeps in recliner M2 PT-IP Current Condition Start: 12/04/17 13:16 Freq: Status: Active Protocol: Document 12/04/17 13:00 [facility] (Rec: 12/04/17 13:30 [facility] [email or web address]) Physical Therapy Current Condition Current Condition Evaluation Date 12/04/17 Treatment Diagnosis R reverse total shoulder arthroplasty, ORIF greater & lesser tubercle fx Precautions Shoulder Precautions Sling Pendulums Other Precautions sling @ all times, pendulums only for 6 weeks (no ROM until cleared by MD /p 6 wks). Weight Bearing Status Weight Bearing Status Non-Weight Bearing M3 PT-IP Subjective Start: 12/04/17 13:16 Freq: Status: Active Protocol: Document 12/04/17 13:00 [facility] (Rec: 12/04/17 13:30 [facility] [email or web address]) Subjective Physical Therapy Visit Type Type Initial Evaluation Visit Start Time 12:35 Visit Stop Time 13:10 Total Visit Minutes 45 Number of DATA SYSTEMS MANAGER Visits 0 Physical Therapy Visit Comments Patient Comments pt feeling tired, has not had a BM. M4 PT-IP Mobility and Gait Start: 12/04/17 13:16 Freq: Status: Active Protocol: Document 12/04/17 13:00 [facility] (Rec: 12/04/17 13:30 [facility] [id number]) PT-Bed Mobility Assessment Sit to Supine Sit to Supine Standby Assistance Scooting Scooting to Edge of Bed Standby Assistance PT-Transfer Assessment Sit to and From Stand Sit to and from Stand Standby Assistance Transfers Transfer Destination Bed Toilet Transfer Technique Stand Step Pivot Transfer Ability Level of Assist Standby Assistance Gait Assessment Gait Gait Assistance Required: Standby Assistance Distance (Feet) 50 Gait Deviations General Gait Pattern Decreased Stride Length Decreased Feet Clearance Step-to Gait Factors Limiting Gait Function Factors Limiting Gait Function Decreased Activity Tolerance Decreased Strength Poor Balance Comments Gait Comments mild/mod. lateral sway. Stair Climbing Assessment Evaluation Level of Assist On Stairs Contact Guard Assistance Technique/Endurance Stair Climbing Direction Ascend and Descend Stair Climbing Technique Step to Step Number of Steps Climbed 2 Query Text: Comments Stair Climbing Comments supporting pt's L hand up/down with PT supervision. PT-Balance Assessment Sitting Balance and Reactions Static Sitting Balance Ability Good Dynamic Sitting Balance Ability Good Standing Balance and Reactions Static Standing Balance Ability Good Dynamic Standing Balance Ability Fair Device Used none M5 PT-IP Objective Assessments Start: 12/04/17 13:16 Freq: Status: Active Protocol: Document 12/04/17 13:00 [facility] (Rec: 12/04/17 13:30 [facility] [id number]) Orientation Orientation/Cognition Level of Alertness Alert Orientation Name Age Birthday Month Date Year Day of Week Place Situation Gross Range of Motion Upper Extremity ROM Assessment Right Impaired Impairments RUE in sling Strength Lower Extremity Strength Assessment Within Functional Limits Coordination Assessment Gross Coordination Gross Coordination WNL M6 PT-IP Treatment Start: 12/04/17 13:16 Freq: Status: Active Protocol: Document 12/04/17 13:00 [facility] (Rec: 12/04/17 13:30 [facility] [id number]) Physical Therapy Treatment Exercises Exercises Shoulder Pendulums Education Education Provided Precautions Safety Brace Education [place] Patient Caregiver Equipment Issued Equipment [employer] medium sized sling (small does not fit well), [employer] [facility] Other Treatments Other Treatment Performed educated spouse and pt how to don/doff sling, pendulums M7 PT-IP Assessment and Plan Start: 12/04/17 13:16 Freq: Status: Active Protocol: Document 12/04/17 13:00 [facility] (Rec: 12/04/17 13:30 [facility] [email or web address]) PT Summary Assessment and Plan Potential Rehabilitation Potential Good Status of Condition at Evaluation Stable Summary Impairments Pain ROM Balance Transfers Gait Activity Tolerance Assessment Summary POD #1 R reverse total shoulder arthroplasty and ORIF of greater and lesser tubercle fx. Pt and spouse both educated on how to safely don/doff sling, and perform pendulums safely (handout provided by OT earlier this date). Pt able to manage steps without the use of a rail and assistance, with good technique and safety. Overall , pt appears somewhat lethargic, likely due to pain medication. She is cleared to d/c home when medically stable . Goals Bed Mobility Goal Independent Transfer Goal Independent Gait Goal Independent Gait Distance 150 Other Goals up/down 2 steps no rail SBA Days to Meet Goals 2 Frequency of Treatment Frequency Of Treatment Twice a Day Treatment Plan Physical Therapy Treatment Plan Bed Mobility Training Transfer Training Gait Training Therapeutic Exercise Post Op Education Discharge Planning Hot or Cold Pack Recommendations To Nursing Amount of Assist Needed 1 Person Assist Discharge Recommendations PT Discharge Recommendations Home with Assistance Outpatient PT Other Discharge Recommendations OP PT when cleared by MD /p 6 wks Equipment Needed for Home Before bedside commode Discharge
--- NOTE | 2017-12-04 15:27 | OT.IP.EVAL ---
Current Diagnoses Other displaced fracture of upper end of right humerus, initial encounter for closed fracture (12/03/17) Surgery Performed Operation Date: 12/03/17 10:30 Actual Procedures p Right Reverse Total Shoulder Arthroplasty and Fixation of Tuberosity Fractures(Right) - Clifford Presley MD Past Medical History (Last Updated 12/02/17 @ 14:53 by Mansi Rawls, RN) Atrial fibrillation (Acute) Depression (Acute) Fracture of proximal end of right humerus (Acute) Hemorrhoids (Acute) History of tuberculosis (Acute) History of varicose veins (Acute) Hypothyroid (Acute) Kidney stones (Acute) Osteoporosis (Acute) Surgical History (Last Updated 12/02/17 @ 14:53 by Mansi Rawls RN) History of lung surgery (Acute) Hx of thyroidectomy (Acute) Status post bilateral cataract extraction (Acute) Occupational Therapy Inpatient Evaluation/Re-Eval M1 PT/OT-IP Prior Functional Status Start: 12/04/17 13:16 Freq: Status: Active Protocol: Document 12/04/17 13:00 [facility] (Rec: 12/04/17 13:30 [facility] [id number]) Medical Review Prior Functional Status Mobility and Gait indep. gait without device Activities of Daily Living and IADL's indep. ADLs Social History Household Members spouse Living Arrangements House Number of Floors (Floors) One Floor Number of Stairs To Enter/Railing? 2 SE without rail Additional Social History Comment pt sleeps in recliner M1 PT/OT-IP Prior Functional Status Start: 12/04/17 14:50 Freq: NEEDED Status: Active Protocol: Document 12/04/17 09:30 [facility] (Rec: 12/04/17 15:27 [facility] [id number]) Medical Review Prior Functional Status Medical History Reviewed Yes Mobility and Gait indep. gait without device Activities of Daily Living and IADL's indep. ADLs Social History Household Members spouse Living Arrangements House Number of Floors (Floors) One Floor Number of Stairs To Enter/Railing? 2 SE without rail Home Environment Standard Height Toilet Walk in Shower Additional Social History Comment pt sleeps in recliner M2 OT-IP Current Condition Start: 12/04/17 14:50 Freq: Status: Active Protocol: Document 12/04/17 09:30 [facility] (Rec: 12/04/17 15:27 [facility] [id number]) Occupational Therapy Current Condition Current Condition Evaluation Date 12/04/17 Treatment Diagnosis Right proximal humerus fx. Diagnosis Onset Date 12/03/17 Post Operative Precautions Shoulder Precautions Sling Pendulums Other Precautions sling @ all times, pendulums only for 6 weeks (no ROM until cleared by MD /p 6 wks). Weight Bearing Status Weight Bearing Status Non-Weight Bearing M3 OT- IP Subjective and Pain Start: 12/04/17 14:50 Freq: Status: Active Protocol: Document 12/04/17 09:30 [facility] (Rec: 12/04/17 15:27 [facility] [id number]) OT- Subjective Occupational Therapy Visit Type Type Initial Evaluation Visit Start Time 09:30 Visit Stop Time 10:45 Total Visit Minutes 75 Occupational Therapy Visit Comments Patient/Caregiver Goals Pt wanting to go home. OT Pain Assessment Pain When Pain Assessed During Mobility Pain Present Pain Present Pain Reported Location Right Shoulder Intensity 8 Scale Used Numeric (1 - 10) M4 OT- IP ADL's Start: 12/04/17 14:50 Freq: Status: Active Protocol: Document 12/04/17 09:30 [facility] (Rec: 12/04/17 15:27 [facility] [id number]) OT [id number]-[id number] General Evaluation Areas Needing Assistance Opening Containers OT ADL-Grooming General Evaluation Grooming Ability Maximum Assistance Comments OT Grooming Comments assist to help wash left hand OT ADL-Dressing General Eval Upper Body Dressing Ability Maximum Assistance Lower Body Dressing Ability Maximum Assistance Areas Needing Assistance Underpants/Brief Socks Orthosis/Prosthesis Comments OT Dressing Comments Due to only able to use left arm MAX A . Able to educate pt and pt's regarding sling management. PT in PM able to switch out sling from small to medium for better fit . Pt educated for clothing management. OT ADL-Toileting General Evaluation Toileting Ability Moderate Assistance Areas Needing Assistance Manage Clothing Comments OT Toileting Comments Pt able to reach back with left hand to sit to the toilet and needing set-up for toilet paper and assist for clothing , MOD to pull up brief. Pt currently sleep in a recliner and bathroom is 65 feet away and would benefit from BSC. OT ADL-Bathing Comments OT Bathing Comments Recommended pt to have a shower chair, walk in with sling, sit down and take off sling and then have to assist. M5 OT- IP IADL's Start: 12/04/17 14:50 Freq: Status: Active Protocol: Document 12/04/17 09:30 [facility] (Rec: 12/04/17 15:27 [facility] [id number]) OT-Instrumental Activities of Daily Living Medication Management Medication Management No Deficits Identified Money Management Money Management No Deficits Identified Meal Preparation Meal Preparation Comments to assist for all needs. Psychologist Personnel Psychologist Personnel Comments looking ot hire assist . M6 OT- IP Functional Cognition Start: 12/04/17 14:50 Freq: Status: Active Protocol: Document 12/04/17 09:30 [facility] (Rec: 12/04/17 15:27 [facility] [id number]) Cognitive Factors Limiting Selfcare Function Cognitive Ability Level of Alertness Alert Patient Orientation Name Place Situation Attention Span Ability Capable of Focused Attention Capable of Sustained Attention Ability to Follow Commands Able to Follow Multi-Step Commands Memory Description No Deficits Noted Safety Awareness Underestimates Need for Assistance M7 OT- IP Mobility and Balance Start: 12/04/17 14:50 Freq: Status: Active Protocol: Document 12/04/17 09:30 [facility] (Rec: 12/04/17 15:27 [facility] [id number]) OT- Bed Mobility Assessment Rolling Type of Rolling Roll to Left Level of Assistance Standby Assistance Supine to Sit Supine to Sit Assist Standby Assistance Sit to Supine Sit to Supine Assist Standby Assistance OT-Transfer Assessment Sit to and From Stand Sit to and from Stand Contact Guard Assistance Transfers Transfer Ability Contact Guard Assistance Technique Transfer Destination Bed Toilet Devices Transfer Assistive Devices None Gait Belt Comments Mobility Comments Pt feeling a bit dizzy while getting up first supine 122/70, sitting 115/72, standing 117, 51. Pt needing CGA to walk and taking small and wide steps for balance. PT to assess pt later to see if pt may benefit from a cane. OT- Balance Assessment Sitting Balance and Reactions Static Sitting Balance Ability Normal Dynamic Sitting Balance Ability Good Standing Balance and Reactions Static Standing Balance Ability Good Dynamic Standing Balance Ability Fair M8 OT- IP Objective Assessments Start: 12/04/17 14:50 Freq: Status: Active Protocol: Document 12/04/17 09:30 [facility] (Rec: 12/04/17 15:27 [facility] [id number]) OT Gross Range of Motion Upper Extremity Range of Motion ROM Impairments LUE duputren's contracture and arthritic changes in fingers. OT Strength Comments Strength Comments LUE 4-/5 M9 OT- IP Assessment and Plan Start: 12/04/17 14:50 Freq: Status: Active Protocol: Document 12/04/17 09:30 [facility] (Rec: 12/04/17 15:27 [facility] [id number]) OT Summary Assessment and Plan Potential Rehabilitation Potential Excellent Analytic Complexity at Evaluation Low Summary OT Impairments Pain Strength Balance Coordination Functional Mobility Grooming Dressing Toileting Bathing Toilet Transfers Shower Transfers Progress Towards Goals Slow Progress due to Activity Tolerance Assessment Summary Pt low complexity and main barrier is steps, and needing extensive assist for all Adl needs at this time. is a bit anxious of taking care of his and wanting information for hiring assist. OT equipment needs recommmended to pt's . Pt to be discharged later today when medically stable and after all family training. Goals Patient/Caregiver Education Goal Caregiver Independent Assisting Patient Days to Meet Goals 1 Frequency of Treatment Frequency Of Treatment Once a Day Treatment Plan OT Treatment Plan ADL Training Patient/Family Education Discharge Planning Discharge Recommendations OT Discharge Recommendations Home with 14/09 Assist Home Equipment Needs BSC, HHSP, shower chair
== END 2017-12-04 14:45 | disposition home or self-care (01) | DRG 483 ==
PROVIDERS: Admitting Provider Orthopaedic Surgery; Family Provider Family Medicine; PCP Family Medicine; Visit Provider Orthopaedic Surgery
PROC: 0RRJ00Z Replacement of Right Shoulder Joint with Reverse Ball and Socket Synthetic Substitute, Open Approach (ICD-10-PCS; CPT 23472; principal; 2017-12-03 10:30)
DX: S42.351A Displaced comminuted fracture of shaft of humerus, right arm, initial encounter for closed fracture (principal); D62 Acute posthemorrhagic anemia; Z79.01 Long term (current) use of anticoagulants; I48.0 Paroxysmal atrial fibrillation; I10 Essential (primary) hypertension; E03.9 Hypothyroidism, unspecified; W18.30XA Fall on same level, unspecified, initial encounter
CPT/HCPCS: 36415; 64415; 73020; 80048; 81001; 83036; 85025; 85027; 93005; 97116; 97161; 97165; 97535; C1776; J0690; J1170; J2250; J2405; J2704; J3010

== ENCOUNTER 2017-12-08 13:36 | Emergency (ER) | payer MEDICARE, SELFPAY ==
[2017-12-03 15:11] VITALS: BMI 18.3
[2017-12-08] VITALS (8 sets, daily range): BP systolic 106–130; BP diastolic 53–93; PULSE 84–145; RESP 16–20; TEMP 35.9; O2SAT 93–98; BMI 18.0
--- NOTE | 2017-12-08 14:05 | ED.ABDPAIN ---
HPI - Abdominal Pain General Chief Complaint: Abdominal Pain Stated Complaint: NO BM in several days Time Seen by Provider: 12/08/17 13:51 Source: patient and family Mode of arrival: ambulatory Limitations: no limitations History of Present Illness HPI narrative: The patient complains of constipation for the last 12 days since having a shoulder surgery on the right. She states she has been on Percocet for pain. Patient states that she has not been nauseated or vomiting. She denies chest pain or shortness of breath. She has not noticed any palpitations. Patient states she has been having some very mild crampy lower abdominal pain but otherwise has been feeling pretty good. No other complaints at this time. Patient does note that she has not been eating much since the surgery. Severity scale (1-10): 2 Quality: cramping Radiation: none Migration to: no migration Relieving factors: nothing Exacerbating factors: nothing Context: recent surgery/procedure Associated symptoms: denies other symptoms Treatments prior to arrival: prescription analgesics Related Data Home Medications Medication Instructions Recorded Confirmed Fish Oil 1 cap PO DAILY 11/26/17 12/08/17 Vitamin B 1 tab PO DAILY 11/26/17 12/08/17 Vitamin D3 1 cap PO DAILY 11/26/17 12/08/17 levothyroxine 1 tab PO DAILY 11/26/17 12/08/17 metoprolol succinate 1 tab PO QAM 11/26/17 12/08/17 [id number] 1 tab PO DAILY 11/26/17 12/08/17 [Multivitamin 50 Plus] sertraline 1 tab PO QPM 11/26/17 12/08/17 hydrocodone-acetaminophen 1 tab PO Q4H PRN 12/08/17 12/08/17 lorazepam 0.25 - 5 mg PO DAILY PRN 12/08/17 12/08/17 meclizine 1 tab PO Q6H PRN 12/08/17 12/08/17 rivaroxaban [Xarelto] 1 tab PO DAILY 12/08/17 12/08/17 Previous Rx's Medication Instructions Recorded ondansetron [Zofran ODT] 4 mg PO BID-TID PRN #14 tab 11/26/17 oxycodone 5 mg PO Q3HR PRN #40 tab 12/04/17 Allergies Allergy/AdvReac Type Severity Reaction Status Date / Time cortisone AdvReac Verified 12/03/17 08:57 Review of Systems Review of Systems All systems reviewed & are unremarkable except as noted in HPI and below Constitutional Denies chills, Denies fever(s), Denies lethargy and Denies weakness Eyes Denies change in vision, Denies eye discharge, Denies irritation and Denies loss of vision ENT Ears, Nose, Mouth, and Throat: Denies change in voice, Denies neck pain and Denies sore throat Cardiovascular Denies chest pain, Denies irregular heart rhythm, Denies lightheadedness, Denies palpitations, Denies dyspnea, Denies dyspnea on exertion and Denies orthopnea Respiratory Denies cough, Denies dyspnea, Denies dyspnea on exertion and Denies wheezing Gastrointestinal Gastrointestinal: Denies abdominal pain, Denies change in bowel habits, Denies diarrhea, Denies nausea and Denies vomiting Genitourinary Denies hematuria, Denies flank pain, Denies urinary incontinence and Denies urinary urgency Musculoskeletal Denies neck pain Integumentary/Breasts Denies pruritus, Denies erythema, Denies rash and Denies wounds Neurologic Denies confusion, Denies loss of vision and Denies weakness Psychiatric Denies anxiety, Denies confusion, Denies depression, Denies homicidal ideation and Denies suicidal ideation Endocrine Denies palpitations Hematologic/Lymphatic Denies easy bruising Allergic/Immunologic Denies wheezing [facility] Medical History Atrial fibrillation (Acute) Depression (Acute) Fracture of proximal end of right humerus (Acute) Hemorrhoids (Acute) History of tuberculosis (Acute) History of varicose veins (Acute) Hypothyroid (Acute) Kidney stones (Acute) Osteoporosis (Acute) Surgical History History of lung surgery (Acute) Hx of thyroidectomy (Acute) Status post bilateral cataract extraction (Acute) Social History Smoking Status: Never smoker alcohol intake: never Exam Initial Vital Signs Initial Vital Signs: Vital Signs Temperature 96.7 F L 12/08/17 13:37 Pulse Rate 134 H 12/08/17 13:37 Respiratory Rate 20 12/08/17 13:37 Blood Pressure 124/81 12/08/17 13:37 Pulse Oximetry 98 12/08/17 13:37 Const General: cooperative and well developed Nutritional Appearance: well nourished Orientation: alert, awake, oriented x3 and not confused [facility] Head: normocephalic and atraumatic Ears: external ears normal and TM's normal bilaterally Nose: external nose normal and No nasal discharge Face and sinus: sinuses nontender, face symmetric, no sinus tenderness and No dry mucous membranes Mouth: oral mucosae normal and moist mucous membranes Teeth and gingiva: dentition normal Throat: tonsils normal and uvula midline Eyes General: appearance normal, both eyes and all related structures Eyelids: eyelids normal Conjunctivae: conjunctivae normal Sclera: sclerae normal Pupils: PERRL EOM: EOM intact bilaterally Neck Neck: normal visual inspection, trachea midline, No lymphadenopathy, No midline deformity and No JVD Lymphatic: No lymphedema Chest Chest: normal inspection of the chest Resp Effort & Inspection: normal respiratory effort, able to speak in complete sentences, no respiratory distress and no use of accessory muscles Auscultation: clear to auscultation bilaterally, no rales, no rhonchi and no wheezes Cardio Rhythm: abnormal rhythm (Tachycardic) irregularly irregular Heart Sounds: no click, no gallops, no murmurs and no rubs Pulses: normal peripheral pulses GI Inspection: non-distended Palpation: soft, no hepatosplenomegaly, No guarding, No pulsatile mass and tender (Slight, bilateral lower quadrants. No rebound or guarding.) Other: Patient has a small amount of mobile stool in her rectal vault. She has good anal tone. No gross blood. Back/Spine/Pelvis Back: No CVA tenderness Cervical Spine: cervical ROM normal and No pain with cervical ROM Thoracic/Lumbar Spine: thoracic and lumbar spine normal to inspection Skin General: no rashes or lesions noted, No jaundice and No petechiae Neuro General: alert, oriented x3, gait normal and no focal motor deficits Speech: speech normal Extrem General: full ROM, no clubbing, cyanosis or edema, no pedal edema and no calf tenderness Psych Appearance: well kempt Mental Status: mental status grossly normal Attitude: cooperative Thought Content: normal and suicidality Judgment: judgment good Course Course Narrative: Patient was given an enema for potential constipation, which yielded little the stool. She was treated for her atrial fibrillation with RVR with Cardizem. This did yield an improved heart rate though it did not entirely bring the heart rate down to normal. Patient is given a 2nd dose of Cardizem which improved the heart rate further, but not with entirely satisfactory result. Patient was then given a dose of digoxin, which did bring her heart rate to a normal level. I have discussed with the patient and her the need for follow-up. Patient should discuss a long-term plan for her atrial fibrillation with her doctor. As for her lack of bowel movements, the patient even on rectal exam has very little stool in her rectal vault and she does not have symptoms of bowel obstruction. I feel that most likely, she has not been stooling as a combination of her decreased oral intake as well as her narcotic pain medication use recently. We have discussed how to mitigate these symptoms as well. Orders Ordered: Discontinued Medications Digoxin (Lanoxin) 0.125 mg PO NOW ONE Stop: 12/08/17 16:24 Last Admin: 12/08/17 16:54 Dose: 0.125 mg Diltiazem HCl (Cardizem) 20 mg IV NOW ONE Stop: 12/08/17 14:23 Last Admin: 12/08/17 15:12 Dose: 20 mg Diltiazem HCl (Cardizem) 20 mg IV NOW ONE Stop: 12/08/17 16:24 Last Admin: 12/08/17 16:55 Dose: 20 mg Vital Signs - 8 hr 12/08/17 13:37 12/08/17 15:01 12/08/17 15:12 Temperature 96.7 F L Pulse Rate 134 H 103 H 145 H Respiratory Rate 20 18 Blood Pressure 124/81 124/75 Blood Pressure [Right Arm] 106/69 Pulse Oximetry 98 94 MDM - Abdominal Pain Medical Records Attestation: I reviewed the patient's medical records. ECG Data Attestation: I personally reviewed and interpreted this ECG as follows: (See below) Interpretation: Twelve lead EKG performed on December 08, 2017 at 1:52 p.m., as follows: Irregular ventricular rhythm with a rate of 133 beats per minute ID interval undetectable QRS duration 83 milliseconds QTC interval 365 milliseconds Normal axis Nonspecific ST T wave changes Interpretation: Atrial fibrillation with rapid ventricular response; moderate ST T wave abnormality; abnormal EKG as interpreted by ED MD. Discharge Plan Departure Patient Disposition: Home Clinical Impression: Constipation, Atrial fibrillation with RVR Discharge Date/Time: 12/08/17 18:05 Interventions: ED Discharge Assessment Last Done: 12/08/17 18:05 Instructions: DI for Atrial Fibrillation, DI for Constipation Prescriptions: No Action metoprolol succinate 50 mg tablet extended release 24 hr 1 tab PO QAM RF: 0 levothyroxine 50 mcg tablet 1 tab PO DAILY RF: 0 sertraline 50 mg tablet 1 tab PO QPM RF: 0 [id number] [Multivitamin 50 Plus] Tablet 1 tab PO DAILY RF: 0 Fish Oil 1 cap PO DAILY RF: 0 Vitamin B 1 tab PO DAILY RF: 0 Vitamin D3 1 cap PO DAILY RF: 0 ondansetron [Zofran ODT] 4 mg tablet,disintegrating 4 mg PO BID-TID PRN (Reason: nausea and vomiting) Qty: 14 RF: 0 oxycodone 5 mg Tablet 5 mg PO Q3HR PRN (Reason: Pain, Moderate (4-6)) Qty: 40 RF: 0 hydrocodone-acetaminophen 5-325 mg tablet 1 tab PO Q4H PRN (Reason: pain) RF: 0 lorazepam 0.5 mg tablet 0.25 - 5 mg PO DAILY PRN (Reason: Anxiety) RF: 0 meclizine 25 mg tablet 1 tab PO Q6H PRN (Reason: Dizziness) RF: 0 rivaroxaban [Xarelto] 20 mg tablet 1 tab PO DAILY RF: 0 Referrals: Kendell Taylor MD [Primary Care Provider] -
[2017-12-08] MEDS: dilTIAZem 5 MG/ML SDV 20 MG IV ×2 (15:12→16:55)
[2017-12-08] MEDS: DIGOXIN 0.125 MG TABLET PO (16:54)
== END 2017-12-08 18:05 | disposition home or self-care (01) ==
PROVIDERS: Emergency Provider Emergency Medicine; Family Provider Family Medicine; PCP Family Medicine
DX: K59.00 Constipation, unspecified (principal); I48.91 Unspecified atrial fibrillation
CPT/HCPCS: 36591; 93005; 93010; 96374; 96375; 99283